=== PATIENT | male | born 1950 | race African-American/Black ===

== ENCOUNTER 2017-10-02 14:47 | Emergency (ER) | payer OTHER, MEDICAID ==
[~2017-10-02] VITALS: Ht 175.3 cm; Wt 68.0 kg
[2017-10-02 14:55] VITALS: BP 124/62
== END 2017-10-02 16:10 | disposition left against medical advice (07) ==
LOC: ER 14:47
DX: Z53.21 Procedure and treatment not carried out due to patient leaving prior to being seen by health care provider (principal)